=== PATIENT | male | born 1980 | race Caucasian/White ===

== ENCOUNTER 2017-05-11 11:32 | Emergency (ER) | payer SELFPAY ==
--- NOTE | 2017-05-11 12:05 | EDM.PDOC ---
ED HPI GENERAL MEDICAL PROBLEM - General Chief Complaint: ENT Problem Stated Complaint: SORE THROAT Time Seen by Provider: 05/11/17 11:34 Source of Information: Reports: Patient History Limitations: Reports: No Limitations - History of Present Illness INITIAL COMMENTS - FREE TEXT/NARRATIVE: HISTORY AND PHYSICAL: History of present illness: Patient is a 36-year-old male who presents to the emergency room today with complaints of sore throat, fatigue aches 3 days. He states that prior to leaving his home state his did have strep throat and had traveled here to [place] and started to develop symptoms. He denies any fever, chills, chest pain or shortness of breath. He denies any abdominal pain, nausea, vomiting or diarrhea/constipation. He has not received the 2017/2018 influenza vaccine. He has taken Tylenol [id number] without any relief. Denies Tobacco use. Review of systems: As per history of present illness and below otherwise all systems reviewed and negative. Past medical history: As per history of present illness and as reviewed below otherwise noncontributory. Surgical history: As per history of present illness and as reviewed below otherwise noncontributory. Social history: No reported history of drug or alcohol abuse. Family history: As per history of present illness and as reviewed below otherwise noncontributory. Physical exam: General: Well-developed and well-nourished 36 she'll male. Alert and oriented. Nontoxic appearing and in no acute distress. HEENT: Atraumatic, normocephalic, pupils reactive, negative for conjunctival pallor or scleral icterus, mucous membranes moist, old erythema noted to the posterior oropharynx without exudate, no patellar shifting. Neck supple, nontender, trachea midline. No drooling or trismus. No meningeal sign. Lungs: Clear to auscultation, breath sounds equal bilaterally, chest nontender. Heart: S1S2, regular rate and rhythm Abdomen: Soft, nondistended, obese, nontender. Negative for masses or hepatosplenomegaly. Negative for costovertebral tenderness. Pelvis: Stable nontender. Genitourinary: Deferred. Rectal: Deferred. Extremities: Atraumatic, moves all extremities per self without difficulty or deficits, negative for cords or calf pain. Neurovascular unremarkable. Neuro: Awake, alert, oriented. Cranial nerves II through XII unremarkable. Cerebellum unremarkable. Motor and sensory unremarkable throughout. Exam nonfocal. Patient is requesting something for his body aches/headache. I did offer him Toradol, patient declined. Requesting Tylenol. Labs are pending at this time. Negative influenza. Strep is positive. We'll treat with Pen-Vee K twice a day 10 days. Phenergan with codeine, 4 [place], no refill. Supportive care measures were reviewed. Patient voices understanding and is agreeable to plan of care. Denies any questions at this time. Diagnostics: Influenza, strep Therapeutics: Tylenol Impression: Strep throat Plan: 1. Please take the antibiotic as prescribed. These are completed please get a new toothbrush. 2. Supportive care measures such as Tylenol and/or ibuprofen as needed for pain and fever management. Phenergan with codeine has been prescribed for throat and cough discomfort. This medication may cause drowsiness so do not take it will driving her needing to be functioning outside of the house. Drink plenty of fluids to prevent dehydration. Rest. 3. Please establish care with a primary care provider while you're here in [place], phone numbers/contact information have been provided for you, follow- up in the next couple days. Return to the ED as needed and as discussed. Definitive disposition and diagnosis as appropriate pending reevaluation and review of above. Throat Pain Score (Numeric/FACES): 10 - Related Data Allergies Allergy/AdvReac Type Severity Reaction Status Date / Time Sulfa (Sulfonamide Allergy Cannot Verified 05/11/17 11:44 Antibiotics) Remember Home Meds: Home Meds . [No Known Home Meds] 05/11/17 [History] Past Medical History - Past Health History Medical/Surgical History: Denies Medical/Surgical History - Infectious Disease History Infectious Disease History: Reports: Chicken Pox Social & Family History - Family History Family Medical History: Noncontributory - Tobacco Use Smoking Status *Q: Never Smoker - Recreational Drug Use Recreational Drug Use: No ED ROS ENT - Review of Systems Review Of Systems: ROS reveals no pertinent complaints other than HPI. ED EXAM, ENT - Physical Exam Exam: See Below (See dictation) Course - Vital Signs Last Recorded V/S: Last Vital Signs Temp 99.8 F 05/11/17 11:41 Pulse 123 H 05/11/17 11:41 Resp 18 03/16/18 11:41 BP 114/80 05/11/17 11:41 Pulse Ox 96 05/11/17 11:41 - Orders/Labs/Meds Meds: Medications Discontinued Medications Generic Name Dose Route Start Last Admin Trade Name Bernabe PRN Reason Stop Dose Admin Acetaminophen 650 mg 05/11/17 12:11 05/11/17 12:18 Tylenol PO 05/11/17 12:12 650 mg NOW ONE Administration Departure - Departure Time of Disposition: 12:50 Disposition: Home, Self-Care 01 Clinical Impression: Strep throat - Discharge Information Instructions: Strep Throat, [id number] Referrals: PCP,None [Primary Care Provider] - Forms: ED Department Discharge Additional Instructions: My general discharge The following information is given to patients seen in the emergency department who are being discharged to home. This information is to outline your options for follow-up care. We provide all patients seen in our emergency department with a follow-up referral. The need for follow-up, as well as the timing and circumstances, are variable depending upon the specifics of your emergency department visit. If you don't have a primary care physician on staff, we will provide you with a referral. We always advise you to contact your personal physician following an emergency department visit to inform them of the circumstance of the visit and for follow-up with them and/or the need for any referrals to a consulting specialist. The emergency department will also refer you to a specialist when appropriate. This referral assures that you have the opportunity for follow-up care with a specialist. All of these measure are taken in an effort to provide you with optimal care, which includes your follow-up. Under all circumstances we always encourage you to contact your private physician who remains a resource for coordinating your care. When calling for follow-up care, please make the office aware that this follow-up is from your recent emergency room visit. If for any reason you are refused follow-up, please contact the [facility] at and asked to speak to the emergency department charge nurse. [facility] [address] [place] [id number] 1. Please take the antibiotic as prescribed. These are completed please get a new toothbrush. 2. Supportive care measures such as Tylenol and/or ibuprofen as needed for pain and fever management. Phenergan with codeine has been prescribed for throat and cough discomfort. This medication may cause drowsiness so do not take it will driving her needing to be functioning outside of the house. Drink plenty of fluids to prevent dehydration. Rest. 3. Please establish care with a primary care provider while you're here in [place], phone numbers/contact information have been provided for you, follow- up in the next couple days. Return to the ED as needed and as discussed.
[2017-05-11] MEDS ORDERED: Acetaminophen 325 MG Tab PO ONE (12:11)
== END 2017-05-11 13:19 | disposition home or self-care (01) ==
LOC: MW.ED 11:32
DX: J02.0 Streptococcal pharyngitis (principal); Z88.2 Allergy status to sulfonamides
CPT/HCPCS: 87804; 87880; 99283; A9270